=== PATIENT | male | born 1965 | race Caucasian/White ===

== ENCOUNTER 2020-07-11 16:57 | Emergency (ER) | payer OTHER ==
[2020-07-11] MEDS ORDERED: Bacitracin Oint 1 GM U/D Packet TOP ONE (17:18)
[2020-07-11] MEDS ORDERED: Diphtheria,Pertussis(Acell),Tetanus Vaccine 0.5 ML Syringe IM ONE (17:18)
--- NOTE | 2020-07-11 17:20 | EDM.PDOC ---
ED HPI GENERAL MEDICAL PROBLEM - General Chief Complaint: Laceration Stated Complaint: CUT TIP OF FINGER OFF LT HAND Time Seen by Provider: 07/11/20 17:16 Source of Information: Reports: Patient History Limitations: Reports: No Limitations - History of Present Illness INITIAL COMMENTS - FREE TEXT/NARRATIVE: HISTORY AND PHYSICAL: History of present illness: Patient is a 55-year-old male who presents to the emergency room with complaints of a skin avulsion to his left third distal digit. He states he was working in the garage and his finger was pinched between the garage door resulting in the skin avulsion. He denies any other extremity involvement. Offers no systemic complaints. Unsure of his last tetanus update. Review of systems: As per history of present illness and below otherwise all systems reviewed and negative. Past medical history: As per history of present illness and as reviewed below otherwise noncontributory. Surgical history: As per history of present illness and as reviewed below otherwise noncontributory. Social history: See social history for further information Family history: As per history of present illness and as reviewed below otherwise noncontributory. Physical exam: General: Well developed and well nourished 55-year-old male. Alert and orientated x 3. Nontoxic in appearance and in no acute distress. Vital signs are stable and have been reviewed by me. Nursing notes were reviewed. HEENT: Atraumatic, normocephalic, pupils equal and reactive bilaterally, negative for conjunctival pallor or scleral icterus, mucous membranes moist, TMs normal bilaterally, throat clear, neck supple, nontender, trachea midline. No drooling or trismus noted. No meningeal signs. No hot potato voice noted. Lungs: Clear to auscultation, breath sounds equal bilaterally, chest nontender. Normal work of breathing, no accessory muscles used. Heart: S1S2, regular rate and rhythm without overt murmur Abdomen: Soft, nondistended, nontender. Negative for masses or hepatosplenomegaly. Negative for costovertebral tenderness. Skin: Skin avulsion of the pad of the left middle finger, measuring approx 1.5 cm x 1.3 cm. This does not involved the nailbed. No tendon involved. Intact, warm, dry. No lesions or rashes noted. Hematologic: No petechiae or purpra. Mucosa appropriate color and normal nail bed color and refill. Extremities: Good flexion/extension/strength of the left middle digit. SEE SKIN. He moves all extremities per self without difficulty or deficits. Cap refill less than 3 seconds. Neurovascular unremarkable. Neuro: Awake, alert, oriented. Cranial nerves II through XII unremarkable. Cerebellum unremarkable. Motor and sensory unremarkable throughout. Exam nonfocal. Psychiatric: Mood and affect are appropriate. Normal thought process. Answering questions appropriately. Notes: 1% lidocaine was used to perform a digital block with consent. Usual and customary procedures were followed. Chlorhexidine and wound wash was used to cleanse and irrigate the site. X-ray shows soft tissue defect with laceration the tip of the left middle finger. No fracture or radiopaque foreign body. 1745: Dr Noonan, hand surgeon on-call at [facility] in [place]. With patient consent I was able to send picture of the finger and he recommends that I cleanse the sites and reattached the skin to the avulsed area and have him follow-up with him on Monday. The affected finger and avulsed skin were fully anesthetized and cleansed thoroughly. Usual and customary procedures were followed. 4-0 chromic #8 interrupted sutures were placed to keep the avulsed skin adhered. patient tolerated well. Bacitracin Adaptic dressing was applied with education. Patient states that he did plan on returning to [facility] and questions if he can follow-up with a hand surgeon there. I did stress the importance of following up with a hand surgeon in the next few days for repeat evaluation. Copy of x-ray given to patient in case he does return to [place] instead of [facility]. I have talked with the patient about today's findings, in addition to providing specific details for plan of care. Reassessment at the time of disposition de monstrates that the patient is in no acute distress. The patient is stable for discharge, counseling was provided and we discussed in great detail signs and symptoms that would prompt them to return to the Emergency Department. Medication, follow up and supportive care measures were reviewed and discussed. Voices understanding and is agreeable to plan of care. Denies any further questions or concerns at this time. Diagnostics: Finger x-ray Therapeutics: Tdap, Lidocaine, Bacitracin, Wound Care, Nonstick dressing Prescription: Keflex, Percocet Impression: Skin avulsion Crush injury finger Plan: 1. Today your x-ray shows no fractures. The sutures that were used are dissolvable. You can continue to gently wash your hands, pat dry when done. Keep the area clean and dry. Continue to monitor for signs of infection. Keep covered while working. 2. Take the antibiotic as prescribed. You can alternate Tylenol and ibuprofen as needed for pain. For moderate to severe pain you have been prescribed Percocet. This medication may cause drowsiness so do not take it while driving or needing to be functioning outside of the house. 3. I spoke with Dr. Noonan, Gabriel Surgeon in [facility] -who states she can call his office on Monday morning (8am) and he would likely see you that day for follow-up. If you are returning to [place] please follow-up with a hand surgeon and bring the disc/x-ray copy that was given to you while here. If your symptoms should worsen, new symptoms develop or any of the signs and symptoms we discussed should arise please return to the emergency room or call 911 (if needed). Definitive disposition and diagnosis as appropriate pending reevaluation and review of above. L middle finger Pain Score (Numeric/FACES): 4 - Related Data Allergies Allergy/AdvReac Type Severity Reaction Status Date / Time No Known Allergies Allergy Verified 07/11/20 17:22 Home Meds: Home Meds cephALEXin [Keflex] 500 mg PO BID 5 Days #10 cap 07/11/20 [Rx] oxyCODONE HCl/Acetaminophen [Percocet 10-325 mg Tablet] 1 each PO Q6HR PRN #10 tablet 07/11/20 [Rx] Past Medical History Gastrointestinal History: Reports: Other (See Below) Other Gastrointestinal History: occasional heartburn Genitourinary History: Reports: Other (See Below) Musculoskeletal History: Reports: Arthritis, Fracture Other Musculoskeletal History: fx finger Endocrine/Metabolic History: Reports: Obesity/BMI 30+ - Past Surgical History Head Surgeries/Procedures: Reports: None GI Surgical History: Reports: Cholecystectomy ED ROS GENERAL - Review of Systems Review Of Systems: Comprehensive ROS is negative, except as noted in HPI. ED EXAM, SKIN/RASH Exam: See Below (See dictation) ED SKIN PROCEDURES - Laceration/Wound Repair Left 3rd digit Appearance: Irregular, Mildly Contaminated, Other (Skin avulsion) Distal NVT: Neuro & Vascular Intact, No Tendon Injury Anesthetic Type: Digital Local Anesthesia - Lidocaine (Xylocaine): 1% Plain Local Anesthetic Volume: Other (7) Skin Prep: Chlorhexidine (Hibiciens), Saline, Sterile Drape Saline Irrigation (cc's): 1,000 Exploration/Debridement/Repair: Wound Explored, In a Bloodless Field, Explored to Base, No Foreign Material Found Closed with: Sutures Lac/Wound length In cm: 2.8 (1.5x1.3) Suture Size: 4-0 Suture Type: Interrupted, Simple (Dissolvable) Drain Placement: No Sterile Dressing Applied: Provider Tetanus Status Addressed: Yes Complications: No Course - Vital Signs Last Recorded V/S: Last Vital Signs Temp 97.2 F 07/11/20 17:13 Pulse 85 07/11/20 17:13 Resp 18 07/11/20 17:13 BP Pulse Ox 97 07/11/20 17:13 - Orders/Labs/Meds Orders: Active Orders 24 hr Category Date Time Status Vaccines to be Administered [RC] PER UNIT ROUTINE Care 07/11/20 17:18 Active Meds: Medications Discontinued Medications Generic Name Dose Route Start Last Admin Trade Name Freq PRN Reason Stop Dose Admin Bacitracin 1 dose 07/11/20 17:18 07/11/20 17:37 Bacitracin Oint 1 Gm TOP 07/11/20 17:19 1 dose ONETIME ONE Administration Diphtheria/Tetanus/Acell Pertussis 0.5 ml 07/11/20 17:18 07/11/20 17:36 Boostrix IM 07/11/20 17:19 0.5 ml .ONCE ONE Administration Lidocaine HCl 10 ml 07/11/20 17:18 07/11/20 17:37 Xylocaine-Mpf 1% INJECT 07/11/20 17:19 10 ml ONETIME ONE Administration Oxycodone/Acetaminophen 1 tab 07/11/20 17:18 07/11/20 17:40 Percocet 325-10 Mg PO 07/11/20 17:19 Not Given ONETIME ONE Departure - Departure Time of Disposition: 18:20 Disposition: Home, Self-Care 01 Clinical Impression: Avulsion of skin of finger Qualifiers: Encounter type: initial encounter Qualified Code(s): S61.209A - Unspecified open wound of unspecified finger without damage to nail, initial encounter Crush injury to finger Qualifiers: Encounter type: initial encounter Qualified Code(s): S67.10XA - Crushing injury of unspecified finger(s), initial encounter - Discharge Information Prescriptions: cephALEXin [Keflex] 500 mg PO BID 5 Days #10 cap oxyCODONE HCl/Acetaminophen [Percocet 10-325 mg Tablet] 1 each PO Q6HR PRN #10 tablet PRN Reason: Pain Instructions: Laceration Care, Adult, [id number], Sutures, [place], or Adhesive Wound Closure, [id number], Deep Skin Avulsion Referrals: Anmol Corea NP [Primary Care Provider] - Forms: ED Department Discharge Additional Instructions: The following information is given to patients seen in the emergency department who are being discharged to home. This information is to outline your options for follow-up care. We provide all patients seen in our emergency department with a follow-up referral. The need for follow-up, as well as the timing and circumstances, are variable depending upon the specifics of your emergency department visit. If you don't have a primary care physician on staff, we will provide you with a referral. We always advise you to contact your personal physician following an emergency department visit to inform them of the circumstance of the visit and for follow-up with them and/or the need for any referrals to a consulting specialist. The emergency department will also refer you to a specialist when appropriate. This referral assures that you have the opportunity for follow-up care with a specialist. All of these measure are taken in an effort to provide you with optimal care, which includes your follow-up. Under all circumstances we always encourage you to contact your private physician who remains a resource for coordinating your care. When calling for follow-up care, please make the office aware that this follow-up is from your recent emergency room visit. If for any reason you are refused follow-up, please contact the [facility] Emergency Department at and asked to speak to the emergency department charge nurse. Dr. Noonan & Dr. Dick [facility] [address] [place] [address] Thank you for choosing the [facility] emergency department in [place] for your medical needs today. It was a pleasure caring for you. Today you were seen in the emergency department for finger injury 1. Today your x-ray shows no fractures. The sutures that were used are dissolvable. You can continue to gently wash your hands, pat dry when done. Keep the area clean and dry. Continue to monitor for signs of infection. Keep covered while working. 2. Take the antibiotic as prescribed. You can alternate Tylenol and ibuprofen as needed for pain. For moderate to severe pain you have been prescribed Percocet. This medication may cause drowsiness so do not take it while driving or needing to be functioning outside of the house. 3. I spoke with Dr. Noonan, Gabriel Surgeon in [facility] -who states she can call his office on Monday morning (8am) and he would likely see you that day for follow-up. If you are returning to [place] please follow-up with a hand surgeon and bring the disc/x-ray copy that was given to you while here. If your symptoms should worsen, new symptoms develop or any of the signs and symptoms we discussed should arise please return to the emergency room or call 911 (if needed). Sepsis Event Note (ED) - Focused Exam Vital Signs: Vital Signs Temp Pulse Resp Pulse Ox 07/11/20 17:13 97.2 F 85 18 97 - My Orders Last 24 Hours: My Active Orders 07/11/20 17:18 Vaccines to be Administered [RC] PER UNIT ROUTINE - Assessment/Plan Last 24 Hours: My Active Orders 07/11/20 17:18 Vaccines to be Administered [RC] PER UNIT ROUTINE
[2020-07-11] MEDS: Acetaminophen/oxyCODONE 325-10 MG Tab PO ONE ×2 (17:35→17:40)
--- NOTE | 2020-07-11 18:05 | CR ---
INDICATION: Crush injury, middle finger injury. TECHNIQUE: Three views of the left middle finger. FINDINGS: Soft tissue defect and laceration in the tip of the left middle finger. No fracture or radiopaque foreign body. Soft tissue swelling in the index finger. Dictated by Cristóbal Patrick MD @ Jul 11 2020 6:03PM Signed by Dr. Cristóbal Patrick @ Jul 11 2020 6:05PM
[2020-07-11 19:21] VITALS: BP 146/74; PULSE 76
== END 2020-07-11 18:30 | disposition home or self-care (01) ==
LOC: MW.ED 16:57
DX: S67.193A Crushing injury of left middle finger, initial encounter (principal); S61.213A Laceration without foreign body of left middle finger without damage to nail, initial encounter; E66.9 Obesity, unspecified; Z68.37 Body mass index [BMI] 37.0-37.9, adult; Z23 Encounter for immunization; W23.0XXA Caught, crushed, jammed, or pinched between moving objects, initial encounter
CPT/HCPCS: 12002; 73140; 90471; 99283; J2001; A9270-GY